=== PATIENT | male | born 1980 | race Caucasian/White ===

== ENCOUNTER 2016-10-18 13:27 | Emergency (ER) | payer SELFPAY ==
[~2016-10-18] VITALS: Ht 175.3 cm; Wt 79.4 kg
[~2016-10-18 13:27] MED LIST: AGM875T PO; ALPR.5T PO; DULO60CA6 PO; HYDR-3714 PO; HYDR-757 PO; NAPR-243 PO; TRAM50TA2 PO; TRZ100T PO
--- OUTSIDE RECORDS SUMMARY | 2016-10-18 13:33 | XMS REPORT | Continuity of Care Document ---
Author Author [facility] Organization [facility] Address Unknown Phone Unavailable Care Team Providers Care Featheredger And Reducer Machine Name Role Phone NORA STOCK DO PCP Insurance Providers Payer Name Policy Number Subscriber Name Relationship [facility] [id number] Ridge Avery Jr 17 Self / Same As Patient Advance Directives Directive Response Recorded Date/Time Advance Directives No 04/29/14 12:15pm Organ Donor No 04/29/14 12:15pm Resuscitation Status Full Code 04/29/14 12:15pm Problems Medical Problems Problem Onset Date Status Dental caries Unknown Active Medications Medication Dose Route Sig Days/Qty Instructions Order Date Discontinued Date Status Alprazolam 1 PO FOUR TIMES DAILY 03/15/11 Active Amoxicillin/Clavulanate K 1 Tab PO TWICE A DAY 20 Qty 04/29/14 Active Naproxen 1 Each PO THREE TIMES A DAY PRN PAIN 20 Qty FOR PAIN 04/29/14 Active Hydrocodone Bit/Acetaminophen 1 Ea PO EVERY 6 HOURS PRN MILD PAIN 10 Qty 04/29/14 Active Duloxetine HCl 1 Cap PO DAILY 04/29/14 Active Trazodone HCl 100 Mg PO BEDTIME 04/29/14 Active Social History Social History Problem Response Recorded Date/Time Alcohol Use Denies Use 04/29/2014 12:15pm Recreational Drug Use No 04/29/2014 12:15pm Smoking Status Current Everyday Smoker 04/29/2014 12:15pm Query Response Start Date Stop Date Smoking Status Current Everyday Smoker Hospital Discharge Instructions No hospital discharge instructions. Plan of Care No plan of care. Functional Status No functional status results. Allergies, Adverse Reactions, Alerts Allergen Type Severity Reaction Status Last Updated No Known Drug Allergies Active 03/15/11 Immunizations No immunization records. Vital Signs Acute Vital Signs Vital Response Date/Time Temperature (Fahrenheit) 98.4 degrees F (97.6 - 99.5) Temperature (Calculated Celsius) 36.80579 degrees C (36.4 - 37.5) Temperature Source Temporal Pain Pain Intensity 8 Height (Feet) 5 feet Height (Inches) 11 inches Height (Calculated Centimeters) 180.861085 cm Weight (Pounds) 162 pounds Weight (Calculated Kilograms) 73.013466 kilograms Calculated BMI 22.59 Results No known relevant diagnostic tests, laboratory data and/or discharge summary. Procedures No known history of procedures. Encounters Encounter Location Date/Time Departed Emergency Room [facility] 04/29/14 12:07pm Recent Diagnosis
[2016-10-18] MEDS ORDERED: NAPR500T PO (14:29)
[2016-10-18] MEDS ORDERED: AMOX500C2 PO (14:29)
[2016-10-18] MEDS ORDERED: LIDO5JEL10 MM (14:29)
--- NOTE | 2016-10-18 14:29 | ED EENT ---
History of Present Illness General Chief Complaint: Dental Problems/Pain Stated Complaint: TOOTH PAIN Source: patient Exam Limitations: no limitations History of Present Illness Time seen by provider: 14:26 Initial Comments To ER with bilateral lower dental pain for the past 6 months secondary to fractured teeth and dental caries. Scheduled to see the dental clinic on [address] next month he states. Timing/Duration: abrupt Severity: moderate Location: dental Associated Symptoms: denies symptoms Allergies and Home Medications Allergies Coded Allergies: No Known Drug Allergies (Unverified , 03/15/11) Home Medications Alprazolam 0.5 Mg Tablet 1 PO QID (Reported) Amoxicillin/Clavulanate K 875 Mg Tab #20 1 TAB PO BID Prescribed by: LUISA SEXTON on 04/29/14 1211 Duloxetine Hcl 60 Mg Capsule.dr 1 CAP PO DAILY (Reported) Hydrocodone Bit/Acetaminophen 1 Each Tablet #10 1 EA PO Q6H PRN PRN MILD PAIN Prescribed by: LUISA SEXTON on 04/29/14 1212 Hydrocodone Bit/Acetaminophen 1 Tab Tablet #14 1 TAB PO Q4H PRN PRN PAIN Prescribed by: RADHA LIND on 05/06/14 1145 Naproxen 500 Mg Tablet #20 1 EACH PO TID PRN PRN PAIN FOR PAIN Prescribed by: LUISA SEXTON on 04/29/14 1212 Naproxen 500 Mg Tablet #20 1 EACH PO TID PRN PRN PRN PAIN Prescribed by: RADHA LIND on 05/06/14 1145 Tramadol HCl 50 Mg Tablet #14 50 MG PO Q4H PRN PRN PAIN Prescribed by: RADHA LIND on 01/31/16 1844 Trazodone Hcl 100 Mg Tab 100 MG PO HS (Reported) Review of Systems Constitutional: see HPINo chills Eyes: No Symptoms Reported Ears: No Symptoms Reported Nose: no symptoms reported Mouth: see HPI pain Throat: no symptoms reported Cardiovascular: no symptoms reported Musculoskeletal: no symptoms reported Past Qrkmgrw-Koxysg-Firxjl Hx Patient Social History Recent Foreign Travel: No Contact w/Someone Who Travel: No Surgeries HX Surgeries: Yes (DENTAL) Respiratory Hx Respiratory Disorders: No Cardiovascular Hx Cardiac Disorders: No Neurological Hx Neurological Disorders: No Genitourinary Hx Genitourinary Disorders: No Gastrointestinal Hx Gastrointestinal Disorders: No Musculoskeletal Hx Musculoskeletal Disorders: No Endocrine Hx Endocrine Disorders: No HEENT HX ENT Disorders: No Cancer Hx Cancer: No Psychosocial Hx Psychiatric Problems: No Integumentary HX Skin/Integumentary Disorder: No Blood Transfusions Hx Blood Disorders: No Family Medical History Significant Family History: No Pertinent Family Hx Physical Exam General Appearance: WD/WN no apparent distress Eyes: bilateral eye EOMI, bilateral eye PERRL, bilateral eye normal inspection Ears: bilateral ear TM normal, bilateral ear auricle normal, bilateral ear canal normal Nose: normal inspection Mouth/Throat: other (multiple fractured and carious teeth. No buccal swelling to suggest abscess) Neck: non-tender full range of motionNo lymphadenopathy (R), No lymphadenopathy (L) Respiratory: no respiratory distress no accessory muscle use Gastrointestinal: normal bowel sounds non tender Neurologic/Psychiatric: alert normal mood/affect oriented x 3 Skin: normal color warm/dry Departure Impression Impression: Primary Impression: Pain due to dental caries Disposition: HOME, SELF-CARE Condition: Stable Departure-Patient Inst. Decision time for Depature: 14:27 Referrals: NORA STOCK DO (PCP/Family) Primary Care Physician Patient Instructions: Dental Pain (DC) Add. Discharge Instructions: 1. Medication as directed 2. Follow-up with your dentist as soon as possible 3. Antibiotics as directed All discharge instructions reviewed with patient and/or family. Voiced understanding. Scripts Lidocaine HCl 5 Ml Jel.pf.app1 Ml MM UD #1 TUBE Dip a cotton ball in the lidocaine then applied to the base of the painful tooth Prov:LUISA SEXTON APRN 10/18/16 Naproxen (Naprosyn)500 Mg [id number] Mg PO BID PRN PAIN #20 TAB Prov:LUISA SEXTON APRN 10/18/16 Amoxicillin 500 Mg [id number] Mg PO TID #21 CAP Prov:LUISA SEXTON APRN 10/18/16 LUISA SEXTON APRN Oct 18, 2016 14:29
[2016-10-18 14:35] VITALS: BP 130/92
== END 2016-10-18 14:35 | disposition home or self-care (01) ==
LOC: EDUNIT# 13:27 → ER 13:29
DX: K02.9 Dental caries, unspecified (principal)
CPT/HCPCS: 99282

== ENCOUNTER 2018-05-09 11:21 | Inpatient (IN) | payer SELFPAY ==
[~2018-05-09] VITALS: Ht 180.3 cm; Wt 77.1 kg
[~2018-05-09 11:21] MED LIST changes: +AMOX500C2 PO; +CEFD300C3 PO; +HYDR-4226 PO; +LIDO5JEL10 MM; +NAPR-1071 PO; +PANT40SU PO
[2018-05-09 12:00] VITALS: BP 100/62
[2018-05-09] MEDS ORDERED: HYDROcodone/APAP 5 MG/325 MG (LORTAB) TAB PO PRN (12:45)
[2018-05-09] MEDS: cefTRIAXone 1 GM/NS 50 ML IVPB IV SCH ×2 (12:54)
[2018-05-09] MEDS: NS IV 1000 ML 1,000 ML IV SCH ×2 (12:54→23:00)
[2018-05-09] MEDS ORDERED: PANT40TA2 PO (13:25)
[2018-05-09] MEDS ORDERED: CYAN-23 PO (13:28)
[2018-05-09] MEDS ORDERED: ASCO-262 PO (13:28)
[2018-05-09] MEDS ORDERED: CHOL20003 PO (13:28)
[2018-05-09 13:30] LABS: BASOPHILS % (AUTO) 0 % (0-10); EOSINOPHILS # (AUTO) 0.2 10^3/uL (0.0-0.3); EOSINOPHILS % (AUTO) 2 % (0-10); HEMATOCRIT 33 % (40-54); HEMOGLOBIN 11.8 G/DL (13.3-17.7); LYMPHOCYTES # (AUTO) 0.8 X 10^3 (1.0-4.0); LYMPHOCYTES % (AUTO) 12 % (12-44); MEAN CORPUSCULAR HEMOGLOBIN 31 PG (25-34); MEAN CORPUSCULAR HGB CONC 35 G/DL (32-36); MEAN CORPUSCULAR VOLUME 88 FL (80-99); MONOCYTES # (AUTO) 0.9 X 10^3 (0.0-1.0); MONOCYTES % (AUTO) 12 % (0-12); NEUTROPHILS % (AUTO) 73 % (42-75); PLATELET COUNT 175 10^3/uL (130-400); RED CELL DISTRIBUTION WIDTH 13.5 % (10.0-14.5); WHITE BLOOD COUNT 6.9 10^3/uL (4.3-11.0)
[2018-05-09 13:44] LABS: ALANINE AMINOTRANSFERASE 44 U/L (0-55); ALBUMIN 3.8 GM/DL (3.2-4.5); ALKALINE PHOSPHATASE 181 U/L (40-136); BILIRUBIN,TOTAL 0.7 MG/DL (0.1-1.0); BUN/CREATININE RATIO 10; CALCIUM 8.6 MG/DL (8.5-10.1); CARBON DIOXIDE 20 MMOL/L (21-32); CHLORIDE 105 MMOL/L (98-107); CREATININE SERUM 0.72 MG/DL (0.60-1.30); GFR ESTIMATED > 60; GLUCOSE 89 MG/DL (70-105); POTASSIUM 3.3 MMOL/L (3.6-5.0); SODIUM 136 MMOL/L (135-145); TOTAL PROTEIN 6.6 GM/DL (6.4-8.2)
[2018-05-09] MEDS: NICOTINE 14 MG (NICODERM) PATCH TD SCH (14:02)
[2018-05-09] MEDS ORDERED: KCL 10 MEQ TAB (MICRO K) PO NR (14:30)
[2018-05-09] MEDS ORDERED: CATHETER FLUSH 10 ML SYR IV PRN (14:45)
[2018-05-09 14:56] LABS: AMYLASE 13 U/L (25-125); LIPASE < 4 U/L (8-78)
[2018-05-09 16:31] VITALS: BP 119/67
--- NOTE | 2018-05-09 18:27 | Diagnostic Imaging Report ---
INDICATION: Generalized abdominal pain COMPARISON: None. FINDINGS: Two views demonstrate nondistended bowel gas pattern. There is no significant constipation. There is no free air. Osseous structures are normal. IMPRESSION: 1. Negative KUB. Dictated by: Dictated on workstation # [id number]
--- NOTE | 2018-05-09 19:11 | History & Physicial ---
History of Present Illness History of Present Illness Reason for visit/HPI Challenged shivering and shaking. Patient came to the emergency room yesterday has begins to 5 at that time was running over 103 temperature. Upper abdomen pain and hurting on both sides. CAT scan shows splenic abscess probably. Patient complaining of pain in the upper abdomen on the left side. Surgery denies. Family history grandma diabetic denies asthma TB heart disease lung disease cancer. Patient came to the office today and didn't have a good night and put directly into the hospital Date of Admission May 09, 2018 at 11:53 Time Seen by Provider: 19:00 I consulted on this patient on 05/09/18 19:03 Attending Physician Myron Stock DO Admitting Physician Myron Stock DO Consult Allergies and Home Medications Allergies Coded Allergies: No Known Drug Allergies (Unverified , 03/15/11) Home Medications Ascorbate Calcium 500 Mg Tablet, 500 MG PO DAILY, (Reported) Cefdinir 300 Mg Capsule, 300 MG PO BID Prescribed by: LUISA SEXTON on 05/08/18 1452 Cholecalciferol (Vitamin D3) 2,000 Unit Capsule, 2,000 UNIT PO DAILY, (Reported) Cyanocobalamin (Vitamin B-12) 1,000 Mcg Capsule, 1,000 MCG PO DAILY, (Reported) Hydrocodone/Acetaminophen 1 Each Tablet, 1 EACH PO Q4H PRN for PAIN-MODERATE TO SEVERE Prescribed by: LUISA SEXTON on 05/08/18 1452 Pantoprazole Sodium 40 Mg Tablet.dr, 40 MG PO DAILY, (Reported) Patient Home Medication List Home Medication List Reviewed: Yes Past Bjpugfi-Auphul-Eksrgt Hx Patient Social History Marrital Status: Employed/Student: unemployed Alcohol Use: Denies Use Recreational Drug Use: No Type Used: Cigarettes 2nd Hand Smoke Exposure: Yes Physical Abuse Screen: No Sexual Abuse: No Recent Foreign Travel: No Contact w/other who traveled: No Recent Hopitalizations: No Surgeries Yes (DENTAL) Respiratory No Cardiovascular No Neurological No Gastrointestinal No Musculoskeletal No Endocrine History of Endocrine Disorders: No HEENT History of HEENT Disorders: No Cancer No Psychosocial History of Psychiatric Problem: Yes Behavioral Health Disorders: Anxiety Integumentary History of Skin or Integumenta: No Blood Transfusions History of Blood Disorders: No Family Medical History Significant Family History: No Pertinent Family Hx Review of Systems Constitutional: chills, fever, weakness EENTM: no symptoms reported Respiratory: no symptoms reported Cardiovascular: no symptoms reported Gastrointestinal: RUQ, LUQ, abdominal pain (RUQ) Genitourinary: no symptoms reported Physical Exam Vital Signs Vital Signs - First Documented 05/09/18 12:00 Temp 97.5 Pulse 72 Resp 20 B/P (MAP) 100/62 (75) Pulse Ox 98 O2 Delivery Room Air Capillary Refill : Height, Weight, BMI Height: 5'11.00" Weight: 170lbs. 0.0oz. 77.976733kv; 23.7 BMI Method:Stated General Appearance: No Apparent Distress Eyes: Bilateral Eye Normal Inspection HEENT: Normal ENT Inspection Neck: Normal Inspection Respiratory: Lungs Clear, No Accessory Muscle Use, No Respiratory Distress Cardiovascular: Regular Rate, Rhythm, No Murmur Gastrointestinal: Non Tender, Soft Assessment/Plan Assessment and Plan Abscess of spleen. Fever. Abdominal pain. Admission Diagnosis Admission Status: Inpatient Order (span 2 midnights) Reason for Inpatient Admission: Fever. Chills. Abdominal pain upper quadrant. Clinical Quality Measures DVT/VTE Risk/Contraindication: Risk Factor Score Per Nursin RFS Level Per Nursing on Admit: 1=Low/No VTE PPX MYRON STOCK DO May 09, 2018 19:10
[2018-05-09] MEDS ORDERED: ACETAMINOPHEN 500 MG TAB (TYLENOL) PO PRN (19:30)
[2018-05-09 19:40] VITALS: BP 133/73
[2018-05-09] MEDS: PANTOPRAZOLE 40 MG (PROTONIX) VIAL IV SCH (20:09)
[2018-05-09] MEDS: HYDROcodone/APAP 5 MG/325 MG (LORTAB) TAB PO PRN (20:10)
[2018-05-10] VITALS (7 sets, daily range): BP systolic 114–126; BP diastolic 62–75
[2018-05-10] MEDS: HYDROcodone/APAP 5 MG/325 MG (LORTAB) TAB PO PRN ×5 (00:18→20:25)
[2018-05-10 06:29] LABS: BASOPHILS % (AUTO) 1 % (0-10); EOSINOPHILS # (AUTO) 0.1 10^3/uL (0.0-0.3); EOSINOPHILS % (AUTO) 2 % (0-10); HEMATOCRIT 33 % (40-54); HEMOGLOBIN 11.5 G/DL (13.3-17.7); LYMPHOCYTES # (AUTO) 1.7 X 10^3 (1.0-4.0); LYMPHOCYTES % (AUTO) 31 % (12-44); MEAN CORPUSCULAR HEMOGLOBIN 31 PG (25-34); MEAN CORPUSCULAR HGB CONC 35 G/DL (32-36); MEAN CORPUSCULAR VOLUME 89 FL (80-99); MEAN PLATELET VOLUME 10.3 FL (7.4-10.4); MONOCYTES # (AUTO) 0.9 X 10^3 (0.0-1.0); MONOCYTES % (AUTO) 17 % (0-12); NEUTROPHILS # (AUTO) 2.7 X 10^3 (1.8-7.8); NEUTROPHILS % (AUTO) 50 % (42-75); PLATELET COUNT 206 10^3/uL (130-400); RED BLOOD COUNT 3.75 10^6/uL (4.35-5.85); RED CELL DISTRIBUTION WIDTH 13.8 % (10.0-14.5); WHITE BLOOD COUNT 5.4 10^3/uL (4.3-11.0)
--- NOTE | 2018-05-10 06:36 | Progress Note (SOAP) ---
Subjective Time Seen by Provider: 06:35 Subjective/Events-last exam Patient feels better this morning by 50 percent. Patient not running an elevated temperature during the night. Patient still has abdominal discomfort in the upper abdomen. Patient improving Objective Exam Vital Signs Date Time Temp Pulse Resp B/P (MAP) Pulse Ox O2 Delivery O2 Flow Rate FiO2 05/10/18 04:53 98.8 89 17 121/68 (85) 95 Room Air 05/10/18 00:02 97.8 91 18 115/62 (79) 96 Room Air 05/09/18 21:42 101.9 05/09/18 20:10 103.1 05/09/18 19:40 103.1 97 16 133/73 (93) 98 Room Air 05/09/18 16:31 99.6 89 20 119/67 (84) 97 05/09/18 12:15 Room Air 05/09/18 12:00 97.5 72 20 100/62 (75) 98 Room Air I & O 05/10/18 07:00 Intake Total 1350 ml Balance 1350 ml Capillary Refill : General Appearance: No Apparent Distress, WD/WN HEENT: Normal ENT Inspection Neck: Full Range of Motion Respiratory: Lungs Clear, No Accessory Muscle Use, No Respiratory Distress Cardiovascular: Regular Rate, Rhythm, No Murmur Gastrointestinal: non tender, soft Results Lab Laboratory Tests 05/09/18 13:15: White Blood Count 6.9, Red Blood Count 3.80L, Hemoglobin 11.8L, Hematocrit 33L, Mean Corpuscular Volume 88, Mean Corpuscular Hemoglobin 31, Mean Corpuscular Hemoglobin Concent 35, Red Cell Distribution Width 13.5, Platelet Count 175, Mean Platelet Volume 10.0, Neutrophils (%) (Auto) 73, Lymphocytes (%) (Auto) 12 , Monocytes (%) (Auto) 12, Eosinophils (%) (Auto) 2, Basophils (%) (Auto) 0, Neutrophils # (Auto) 5.0, Lymphocytes # (Auto) 0.8L, Monocytes # (Auto) 0.9, Eosinophils # (Auto) 0.2, Basophils # (Auto) 0.0, Sodium Level 136, Potassium Level 3.3L, Chloride Level 105, Carbon Dioxide Level 20L, Anion Gap 11, Blood Urea Nitrogen 7, Creatinine 0.72, Estimat Glomerular Filtration Rate > 60, BUN/ Creatinine Ratio 10, Glucose Level 89, Calcium Level 8.6, Corrected Calcium 8.8 , Total Bilirubin 0.7, Aspartate Amino Transf (AST/SGOT) 22, Alanine Aminotransferase (ALT/SGPT) 44, Alkaline Phosphatase 181H, Total Protein 6.6, Albumin 3.8, Amylase Level 13L, Lipase < 4L 05/10/18 06:02: White Blood Count 5.4, Red Blood Count 3.75L, Hemoglobin 11.5L, Hematocrit 33L, Mean Corpuscular Volume 89, Mean Corpuscular Hemoglobin 31, Mean Corpuscular Hemoglobin Concent 35, Red Cell Distribution Width 13.8, Platelet Count 206, Mean Platelet Volume 10.3, Neutrophils (%) (Auto) 50, Lymphocytes (%) (Auto) 31 , Monocytes (%) (Auto) 17H, Eosinophils (%) (Auto) 2, Basophils (%) (Auto) 1, Neutrophils # (Auto) 2.7, Lymphocytes # (Auto) 1.7, Monocytes # (Auto) 0.9, Eosinophils # (Auto) 0.1, Basophils # (Auto) 0.0 Assessment/Plan Assessment/Plan Assess & Plan/Chief Complaint Abdominal pain. Febrile. Abscess spleen. Clinical Quality Measures Admission Status Admission Dx Abscess of spleen. Fever. Abdominal pain. DVT/VTE Risk/Contraindication: Risk Factor Score Per Nursin RFS Level Per Nursing on Admit: 1=Low/No VTE PPX NORA STOCK DO May 10, 2018 06:36
[2018-05-10 06:49] LABS: ALANINE AMINOTRANSFERASE 37 U/L (0-55); ALBUMIN 3.4 GM/DL (3.2-4.5); ALKALINE PHOSPHATASE 195 U/L (40-136); BILIRUBIN,TOTAL 0.5 MG/DL (0.1-1.0); BUN/CREATININE RATIO 10; CALCIUM 8.4 MG/DL (8.5-10.1); CARBON DIOXIDE 19 MMOL/L (21-32); CHLORIDE 110 MMOL/L (98-107); CREATININE SERUM 0.68 MG/DL (0.60-1.30); GFR ESTIMATED > 60; GLUCOSE 94 MG/DL (70-105); POTASSIUM 3.9 MMOL/L (3.6-5.0); SODIUM 139 MMOL/L (135-145)
[2018-05-10] MEDS ORDERED: IOHEXOL 350 MG/ML 100 ML (OMNIPAQUE 350) VIAL IV ONE (08:30)
[2018-05-10] MEDS ORDERED: NS 250 ML (IVPB) BAG IV ONE (08:30)
[2018-05-10] MEDS ORDERED: RECEIVED CONTRAST (Hold Metformin) IV SCH (08:45)
[2018-05-10] MEDS ORDERED: PANTOPRAZOLE 40 MG (PROTONIX) TAB PO SCH (09:00)
[2018-05-10] MEDS: NS IV 1000 ML 1,000 ML IV SCH ×2 (09:11→19:15)
[2018-05-10] MEDS: PATCH REMOVAL TP SCH (09:11)
[2018-05-10] MEDS: NICOTINE 14 MG (NICODERM) PATCH TD SCH (09:11)
[2018-05-10] MEDS: PANTOPRAZOLE 40 MG (PROTONIX) VIAL IV SCH (09:11)
--- NOTE | 2018-05-10 10:30 | Diagnostic Imaging Report ---
PROCEDURE: CT abdomen and pelvis with contrast. TECHNIQUE: Multiple contiguous axial images were obtained through the abdomen and pelvis after administration of intravenous contrast. INDICATION: Abdominal pain. FINDINGS: The recent CT abdomen/pelvis exam of 05/08/2018 noted an area of inhomogeneity and irregularity in the superior portion of the spleen. The possibility that this is related to an early abscess was raised. On this exam, there is now a small 8.9 x 13.1 mm rounded area of diminished density. This could represent a small infected fluid collection. The spleen is otherwise unremarkable. There is no perisplenic fluid collection identified and the spleen appears to be well vascularized. The overall appearance of the abdomen and pelvis has not changed significantly otherwise. No new abnormality has developed. The lung bases are generally clear. The bone window show no evidence for a fracture or for a destructive lesion. IMPRESSION: 1. In the interval since the previous study, a small 8.9 x 13.1 mm rounded area of low density has developed in the dome of the spleen. This could represent a small infected fluid collection. It may prove worthwhile to obtain an ultrasound examination of this area so that the patient can be followed by ultrasound as opposed to CT, thereby limiting the amount of radiation exposure. 2. The overall appearance of the abdomen and pelvis has not changed significantly otherwise. No new abnormality has developed. 3. These results were discussed with Dr. Teixeira. Dictated by: Dictated on workstation # [id number]
--- NOTE | 2018-05-10 12:21 | Consultation ---
History of Present Illness History of Present Illness Patient Consulted On(zayra/time) 05/10/18 12:18 Date Seen by Provider: May 10, 2018 Time Seen by Provider: 11:05 Reason for Visit: Increasing abdominal pain and fever History of Present Illness High-grade fever 5 days ago with upper abdominal pain, with evaluation revealing a [address] scan is negative for any other intra- abdominal abnormalities. Specifically, there is no evidence of diverticulitis. He reports using injectable illicit drugs in the past. Allergies and Home Medications Allergies Coded Allergies: No Known Drug Allergies (Unverified , 03/15/11) Home Medications Ascorbate Calcium 500 Mg Tablet, 500 MG PO DAILY, (Reported) Cefdinir 300 Mg Capsule, 300 MG PO BID Prescribed by: LUISA SEXTON on 05/08/18 1452 Cholecalciferol (Vitamin D3) 2,000 Unit Capsule, 2,000 UNIT PO DAILY, (Reported) Cyanocobalamin (Vitamin B-12) 1,000 Mcg Capsule, 1,000 MCG PO DAILY, (Reported) Hydrocodone/Acetaminophen 1 Each Tablet, 1 EACH PO Q4H PRN for PAIN-MODERATE TO SEVERE Prescribed by: LUISA SEXTON on 05/08/18 1452 Pantoprazole Sodium 40 Mg Tablet.dr, 40 MG PO DAILY, (Reported) Patient Home Medication List Home Medication List Reviewed: Yes Past Kgrxrwf-Vrxcmi-Gprpqv Hx Patient Social History Alcohol Use: Denies Use Recreational Drug Use: No Type Used: Cigarettes 2nd Hand Smoke Exposure: Yes Recent Foreign Travel: No Contact w/Someone Who Travel: No Recent Hopitalizations: No Past Medical History Surgeries: Yes (DENTAL) Respiratory: No Cardiac: No Neurological: No Gastrointestinal: No Musculoskeletal: No Endocrine: No HEENT: No Cancer: No Psychosocial: Yes Anxiety Integumentary: No Blood Disorders: No Family Medical History No Pertinent Family Hx Review of Systems-General Constitutional: chills, fever, malaise EENTM: no symptoms reported Respiratory: no symptoms reported Cardiovascular: no symptoms reported Gastrointestinal: see HPI Genitourinary: no symptoms reported Musculoskeletal: no symptoms reported Skin: no symptoms reported Psychiatric/Neurological: No Symptoms Reported Physical Exam-General Problems Physical Exam Vital Signs Vital Signs - First Documented 05/09/18 12:00 Temp 97.5 Pulse 72 Resp 20 B/P (MAP) 100/62 (75) Pulse Ox 98 O2 Delivery Room Air Capillary Refill : General Appearance: no apparent distress Respiratory: lungs clear Cardiovascular: regular rate, rhythm Gastrointestinal: non tender, soft Extremities: non-tender, normal inspection Neurologic/Psychiatric: alert, oriented x 3 Skin: warm/dry Assessment/Plan Assessment/Plan Admission Diagnosis/Plan Gentleman with a small abscess along the superior aspect of the spleen. Possibly due to seeding by bacteria from another source. Cardiac valve as a potential source of origin and therefore an echocardiogram would be valuable. I 've discussed this with Dr. Collado, one of our cardiologists, who concurs with the idea of echocardiogram Admission Status: Inpatient Order (span 2 midnights) Reason for Inpatient Admission: Expected intravenous antibiotics lasting longer than 48 hours Clinical Quality Measures DVT/VTE Risk/Contraindication: Risk Factor Score Per Nursin RFS Level Per Nursing on Admit: 1=Low/No VTE PPX ELOISE VÁZQUEZ MD May 10, 2018 12:21 pm
[2018-05-10] MEDS: cefTRIAXone 1 GM/NS 50 ML IVPB IV SCH ×2 (12:37)
[2018-05-11 00:18] VITALS: BP 114/72
[2018-05-11] MEDS: HYDROcodone/APAP 5 MG/325 MG (LORTAB) TAB PO PRN ×5 (02:59→21:16)
[2018-05-11 04:10] VITALS: BP 123/79
[2018-05-11] MEDS: NS IV 1000 ML 1,000 ML IV SCH (05:30)
[2018-05-11 06:04] LABS: BASOPHILS % (AUTO) 1 % (0-10); EOSINOPHILS # (AUTO) 0.2 10^3/uL (0.0-0.3); EOSINOPHILS % (AUTO) 3 % (0-10); HEMATOCRIT 30 % (40-54); HEMOGLOBIN 10.5 G/DL (13.3-17.7); LYMPHOCYTES # (AUTO) 1.1 X 10^3 (1.0-4.0); LYMPHOCYTES % (AUTO) 21 % (12-44); MEAN CORPUSCULAR HEMOGLOBIN 31 PG (25-34); MEAN CORPUSCULAR HGB CONC 36 G/DL (32-36); MEAN CORPUSCULAR VOLUME 88 FL (80-99); MONOCYTES # (AUTO) 0.5 X 10^3 (0.0-1.0); MONOCYTES % (AUTO) 9 % (0-12); NEUTROPHILS # (AUTO) 3.5 X 10^3 (1.8-7.8); NEUTROPHILS % (AUTO) 66 % (42-75); PLATELET COUNT 215 10^3/uL (130-400); RED BLOOD COUNT 3.36 10^6/uL (4.35-5.85); RED CELL DISTRIBUTION WIDTH 13.7 % (10.0-14.5); WHITE BLOOD COUNT 5.2 10^3/uL (4.3-11.0)
[2018-05-11 06:22] LABS: ALANINE AMINOTRANSFERASE 36 U/L (0-55); ALBUMIN 3.3 GM/DL (3.2-4.5); ALKALINE PHOSPHATASE 277 U/L (40-136); BILIRUBIN,TOTAL 0.4 MG/DL (0.1-1.0); BUN/CREATININE RATIO 13; CALCIUM 8.5 MG/DL (8.5-10.1); CARBON DIOXIDE 19 MMOL/L (21-32); CHLORIDE 110 MMOL/L (98-107); CREATININE SERUM 0.67 MG/DL (0.60-1.30); GFR ESTIMATED > 60; GLUCOSE 122 MG/DL (70-105); POTASSIUM 3.7 MMOL/L (3.6-5.0); SODIUM 139 MMOL/L (135-145); TOTAL PROTEIN 5.8 GM/DL (6.4-8.2)
--- NOTE | 2018-05-11 07:51 | Progress Note (SOAP) ---
Subjective Time Seen by Provider: 07:50 Subjective/Events-last exam Patient feels 70 percent better. Patient still has some abdominal pain. Patient not running any temperature. Patient needing and taking fluids. Patient has a splenic abscess small . Had echocardiogram yesterday. Consult with cardiology. We'll probably discharge tomorrow Objective Exam Vital Signs Date Time Temp Pulse Resp B/P (MAP) Pulse Ox O2 Delivery O2 Flow Rate FiO2 05/11/18 04:10 98.4 68 18 123/79 (94) 98 Room Air 05/11/18 00:18 98.7 78 18 114/72 (86) 98 Room Air 05/10/18 20:46 97.7 69 18 126/68 (87) 99 Room Air 05/10/18 15:37 98.2 71 18 114/75 (88) 99 Room Air 05/10/18 12:00 98.4 64 20 117/75 (89) 99 Room Air 05/10/18 08:00 98.3 70 18 116/65 (82) 97 Room Air I & O 05/11/18 07:00 Intake Total 4234 ml Output Total 1750 ml Balance 2484 ml Capillary Refill : General Appearance: No Apparent Distress, WD/WN HEENT: Normal ENT Inspection Neck: Full Range of Motion, Normal Inspection Respiratory: Lungs Clear, No Accessory Muscle Use, No Respiratory Distress Cardiovascular: Regular Rate, Rhythm, No Murmur Gastrointestinal: non tender, soft Results Lab Laboratory Tests 05/11/18 05:30 Laboratory Tests 05/11/18 05:30: White Blood Count 5.2, Red Blood Count 3.36L, Hemoglobin 10.5L, Hematocrit 30L, Mean Corpuscular Volume 88, Mean Corpuscular Hemoglobin 31, Mean Corpuscular Hemoglobin Concent 36, Red Cell Distribution Width 13.7, Platelet Count 215, Mean Platelet Volume 10.0, Neutrophils (%) (Auto) 66, Lymphocytes (%) (Auto) 21 , Monocytes (%) (Auto) 9, Eosinophils (%) (Auto) 3, Basophils (%) (Auto) 1, Neutrophils # (Auto) 3.5, Lymphocytes # (Auto) 1.1, Monocytes # (Auto) 0.5, Eosinophils # (Auto) 0.2, Basophils # (Auto) 0.0, Sodium Level 139, Potassium Level 3.7, Chloride Level 110H, Carbon Dioxide Level 19L, Anion Gap 10, Blood Urea Nitrogen 9, Creatinine 0.67, Estimat Glomerular Filtration Rate > 60, BUN/ Creatinine Ratio 13, Glucose Level 122H, Calcium Level 8.5, Corrected Calcium 9.1, Total Bilirubin 0.4, Aspartate Amino Transf (AST/SGOT) 23, Alanine Aminotransferase (ALT/SGPT) 36, Alkaline Phosphatase 277H, Total Protein 5.8L, Albumin 3.3 Assessment/Plan Assessment/Plan Assess & Plan/Chief Complaint Abdominal pain. Febrile. Abscess spleen.. . 05/11/18. Abdominal pain better. Not febrile. Splenic abscess small. Patient taking fluids. Plan to discharge tomorrow Clinical Quality Measures Admission Status Admission Dx Abscess of spleen. Fever. Abdominal pain. DVT/VTE Risk/Contraindication: Risk Factor Score Per Nursin RFS Level Per Nursing on Admit: 1=Low/No VTE PPX NORA STOCK DO May 11, 2018 07:51
[2018-05-11 08:00] VITALS: BP 120/77
[2018-05-11] MEDS: NICOTINE 14 MG (NICODERM) PATCH TD SCH (09:14)
[2018-05-11] MEDS: PATCH REMOVAL TP SCH (09:14)
[2018-05-11] MEDS: PANTOPRAZOLE 40 MG (PROTONIX) TAB PO SCH (09:17)
[2018-05-11] MEDS: PANTOPRAZOLE 40 MG (PROTONIX) VIAL IV SCH (09:17)
--- NOTE | 2018-05-11 11:52 | Consultation-Cardiology ---
HPI-Cardiology Cardiology Consultation: Date of Consultation 05/11/18 Time Seen by Provider: 11:35 Date of Admission 05-09-18 Attending Physician Nora Stock DO Admitting Physician Nora Stock DO Consulting Physician Tonia Paniagua MD HPI: Chief Complaint: Splenic abscess Mr. Avery is a 38 year old male admitted to [facility] from Dr. Stock's office with c/o diffuse abdominal pain and fever. He reports last he woke up from sleep with sharp RUQ abdominal pain which radiated across his abdomen. He reports it was worse with movement and deep breathing. He states he was running a fever at home. No c/o n/v/d. No c/o CP, dyspnea, palpitations, LE edema, syncope or near syncope. He reports a h/o IV drug use in the past ( methamphetamines), but reports no use in approx a year. He states he is currently feeling better and the abdominal discomfort has resolved. Review of Systems-Cardiology Review of Systems Constitutional: chills, fever Eyes: No vision change Ears/Nose/Throat: No epistaxis, No recent hearing loss Respiratory: As described under HPI Cardiovascular: As described under HPI Gastrointestinal: As described under HPI Genitourinary: No dysuria, No hematuria Musculoskeletal: no symptoms reported Skin: No rash, No ulcerations Psychiatric/Neurological: No seizure, No focal weakness, No syncope Hematologic: No bleeding abnormalities SEF-Mytoji-Xawkco Hx Patient Social History Marrital Status: Employed/Student: unemployed Alcohol Use: Denies Use Recreational Drug Use: No Type Used: Cigarettes 2nd Hand Smoke Exposure: Yes Recent Foreign Travel: No Physical Abuse Screen: No Sexual Abuse: No Past Medical History PMH As described under Assessment. Family Medical History Family Medical History: Denies any family h/o CAD Allergies and Home Medications Allergies Coded Allergies: No Known Drug Allergies (Unverified , 03/15/11) Home Medications Ascorbate Calcium 500 Mg Tablet, 500 MG PO DAILY, (Reported) Cefdinir 300 Mg Capsule, 300 MG PO BID Prescribed by: LUISA SEXTON on 05/08/18 8297 Cholecalciferol (Vitamin D3) 2,000 Unit Capsule, 2,000 UNIT PO DAILY, (Reported) Cyanocobalamin (Vitamin B-12) 1,000 Mcg Capsule, 1,000 MCG PO DAILY, (Reported) Hydrocodone/Acetaminophen 1 Each Tablet, 1 EACH PO Q4H PRN for PAIN-MODERATE TO SEVERE Prescribed by: LUISA SEXTON on 05/08/18 1452 Pantoprazole Sodium 40 Mg Tablet., 40 MG PO DAILY, (Reported) Patient Home Medication List Home Medication List Reviewed: Yes Physical Exam-Cardiology Physical Exam Vital Signs/I&O 05/12/18 00:00 Temp 98.6 Pulse 63 Resp 18 B/P (MAP) 118/67 (84) Pulse Ox 97 O2 Delivery Room Air 05/12/18 00:00 Intake Total 1270 ml Balance 1270 ml Capillary Refill : Constitutional: AAO x 3 HEENT: PERRL, hearing is well preserved, oral hygience is good Neck: No carotid bruit; carotid pulses are 2 + bilaterally Respiratory: No accessory muscle use, No respiratory distress; chest expansion is symmetric, chest is bilaterally symmetric, lungs clear to auscultation Cardiovascular: regular rate-rhythm; No JVD; S1 and S2 Gastrointestinal: No tender; soft, round Rectal: deferred Extremities: no lower extremity edema bilateral Neurologic/Psychiatric: grossly intact, power is 5/5 both on sides Skin: No rash, No ulcerations Data Review Labs Laboratory Tests 05/12/18 05:16: White Blood Count 5.2, Red Blood Count 3.57L, Hemoglobin 11.0L, Hematocrit 32L, Mean Corpuscular Volume 88, Mean Corpuscular Hemoglobin 31, Mean Corpuscular Hemoglobin Concent 35, Red Cell Distribution Width 14.1, Platelet Count 291, Mean Platelet Volume 10.0, Neutrophils (%) (Auto) 48, Lymphocytes (%) (Auto) 33 , Monocytes (%) (Auto) 12, Eosinophils (%) (Auto) 6, Basophils (%) (Auto) 1, Neutrophils # (Auto) 2.5, Lymphocytes # (Auto) 1.7, Monocytes # (Auto) 0.6, Eosinophils # (Auto) 0.3, Basophils # (Auto) 0.1, Sodium Level 139, Potassium Level 3.6, Chloride Level 110H, Carbon Dioxide Level 21, Anion Gap 8, Blood Urea Nitrogen 8, Creatinine 0.65, Estimat Glomerular Filtration Rate > 60, BUN/ Creatinine Ratio 12, Glucose Level 104, Calcium Level 8.7, Corrected Calcium 9.2 , Total Bilirubin 0.6, Aspartate Amino Transf (AST/SGOT) 64H, Alanine Aminotransferase (ALT/SGPT) 69H, Alkaline Phosphatase 370H, Total Protein 6.0L, Albumin 3.4, Smear Scan YES Radiology NAME: [facility] REC#: [id number] PT STATUS: ADM IN : 1980 PHYSICIAN: NORA STOCK DO ADMIT DATE: 05/09/18/ Draft Date of Exam:05/10/18 CT ABDOMEN/PELVIS W PROCEDURE: CT abdomen and pelvis with contrast. TECHNIQUE: Multiple contiguous axial images were obtained through the abdomen and pelvis after administration of intravenous contrast. INDICATION: Abdominal pain. FINDINGS: The recent CT abdomen/pelvis exam of 05/08/2018 noted an area of inhomogeneity and irregularity in the superior portion of the spleen. The possibility that this is related to an early abscess was raised. On this exam, there is now a small 8.9 x 13.1 mm rounded area of diminished density. This could represent a small infected fluid collection. The spleen is otherwise unremarkable. There is no perisplenic fluid collection identified and the spleen appears to be well vascularized. The overall appearance of the abdomen and pelvis has not changed significantly otherwise. No new abnormality has developed. The lung bases are generally clear. The bone window show no evidence for a fracture or for a destructive lesion. IMPRESSION: 1. In the interval since the previous study, a small 8.9 x 13.1 mm rounded area of low density has developed in the dome of the spleen. This could represent a small infected fluid collection. It may prove worthwhile to obtain an ultrasound examination of this area so that the patient can be followed by ultrasound as opposed to CT thereby limiting the amount of radiation. 2. The overall appearance of the abdomen and pelvis has not changed significantly otherwise. No new abnormality has developed. 3. These results will be discussed with Dr. Stock. Dictated on workstation # [id number] Dict: 05/10/18 1005 Trans: 05/10/18 1030 [id number] Interpreted by: GARCIA HESS MD Electronically signed by: A/P-Cardiology Assessment/Admission Diagnosis Abdominal pain - management per medical services Splenic abscess - Small 8.9 x 13.1 mm rounded area of low density has developed in the dome of the spleen. This could represent a small infected fluid collection - management per surgical services H/O IV drug use in the past (methamphetamines) - last usage approx a year ago Mild anemia of undetermined etiology - medical services managing Tobaccoism - cessation advised Clinical Quality Measures DVT/VTE Risk/Contraindication: Risk Factor Score Per Nursin RFS Level Per Nursing on Admit: 1=Low/No VTE PPX JESUS PENA May 11, 2018 11:52
--- NOTE | 2018-05-11 12:23 | Consultation-Cardiology ---
HPI-Cardiology Cardiology Consultation: Date of Consultation 05/11/18 Time Seen by Provider: 11:20 Date of Admission Attending Physician Myron Ibarra DO Admitting Physician Myron Ibarra DO Consulting Physician YOBANI BRENNAN MD, MA, FACP, FACC, [facility], CCDS Physician requesting consult: Dr Ibarra HPI: Chief Complaint: Reason for consultation: H/o iv drug use, splenic abscess Mr. Segundo is a 38 year old male admitted to [facility] from Dr. Ibarra's office with c/o diffuse abdominal pain and fever. He reports last he woke up from sleep with sharp RUQ abdominal pain which radiated across his abdomen. He reports it was worse with movement and deep breathing. He states he was running a fever at home. No c/o n/v/d. No c/o CP, dyspnea, palpitations, LE edema, syncope or near syncope. He reports a h/o IV drug use in the past ( methamphetamines), but reports no use in approx a year. He states he is currently feeling better and the abdominal discomfort has resolved. Review of Systems-Cardiology Review of Systems Constitutional: chills, fever Eyes: No vision change Ears/Nose/Throat: No epistaxis, No recent hearing loss Respiratory: As described under HPI Cardiovascular: As described under HPI Gastrointestinal: As described under HPI Genitourinary: No dysuria, No hematuria Musculoskeletal: no symptoms reported Skin: No rash, No ulcerations Psychiatric/Neurological: No seizure, No focal weakness, No syncope Hematologic: No bleeding abnormalities SPK-Djbfiy-Eahsgt Hx Patient Social History Marrital Status: Employed/Student: unemployed Alcohol Use: Denies Use Recreational Drug Use: No Type Used: Cigarettes 2nd Hand Smoke Exposure: Yes Recent Foreign Travel: No Physical Abuse Screen: No Sexual Abuse: No Past Medical History PMH As described under Assessment. Family Medical History Family Medical History: Denies any family h/o CAD Allergies and Home Medications Allergies Coded Allergies: No Known Drug Allergies (Unverified , 03/15/11) Home Medications Ascorbate Calcium 500 Mg Tablet, 500 MG PO DAILY, (Reported) Cefdinir 300 Mg Capsule, 300 MG PO BID Prescribed by: LUISA SEXTON on 05/08/18 1622 Cholecalciferol (Vitamin D3) 2,000 Unit Capsule, 2,000 UNIT PO DAILY, (Reported) Cyanocobalamin (Vitamin B-12) 1,000 Mcg Capsule, 1,000 MCG PO DAILY, (Reported) Hydrocodone/Acetaminophen 1 Each Tablet, 1 EACH PO Q4H PRN for PAIN-MODERATE TO SEVERE Prescribed by: LUISA SEXTON on 05/08/18 1452 Pantoprazole Sodium 40 Mg Tablet., 40 MG PO DAILY, (Reported) Patient Home Medication List Home Medication List Reviewed: Yes Physical Exam-Cardiology Physical Exam Vital Signs/I&O 05/11/18 05/11/18 04:10 08:00 Temp 98.4 97.0 Pulse 68 70 Resp 18 20 B/P (MAP) 123/79 (94) 120/77 (91) Pulse Ox 98 97 O2 Delivery Room Air Room Air 05/11/18 00:00 Intake Total 2634 ml Output Total 1750 ml Balance 884 ml Capillary Refill : Constitutional: AAO x 3 HEENT: PERRL, hearing is well preserved, oral hygience is good Neck: No carotid bruit; carotid pulses are 2 + bilaterally Respiratory: No accessory muscle use, No respiratory distress; chest expansion is symmetric, chest is bilaterally symmetric, lungs clear to auscultation Cardiovascular: regular rate-rhythm; No JVD; S1 and S2 Gastrointestinal: No tender; soft, round Rectal: deferred Extremities: no lower extremity edema bilateral Neurologic/Psychiatric: grossly intact, power is 5/5 both on sides Skin: No rash, No ulcerations Data Review Labs Laboratory Tests 05/11/18 05:30: White Blood Count 5.2, Red Blood Count 3.36L, Hemoglobin 10.5L, Hematocrit 30L, Mean Corpuscular Volume 88, Mean Corpuscular Hemoglobin 31, Mean Corpuscular Hemoglobin Concent 36, Red Cell Distribution Width 13.7, Platelet Count 215, Mean Platelet Volume 10.0, Neutrophils (%) (Auto) 66, Lymphocytes (%) (Auto) 21 , Monocytes (%) (Auto) 9, Eosinophils (%) (Auto) 3, Basophils (%) (Auto) 1, Neutrophils # (Auto) 3.5, Lymphocytes # (Auto) 1.1, Monocytes # (Auto) 0.5, Eosinophils # (Auto) 0.2, Basophils # (Auto) 0.0, Sodium Level 139, Potassium Level 3.7, Chloride Level 110H, Carbon Dioxide Level 19L, Anion Gap 10, Blood Urea Nitrogen 9, Creatinine 0.67, Estimat Glomerular Filtration Rate > 60, BUN/ Creatinine Ratio 13, Glucose Level 122H, Calcium Level 8.5, Corrected Calcium 9.1, Total Bilirubin 0.4, Aspartate Amino Transf (AST/SGOT) 23, Alanine Aminotransferase (ALT/SGPT) 36, Alkaline Phosphatase 277H, Total Protein 5.8L, Albumin 3.3 A/P-Cardiology Assessment/Admission Diagnosis Abdominal pain - management per Med Svce Splenic abscess - Small 8.9 x 13.1 mm rounded area of low density has developed in the dome of the spleen. This could represent a small infected fluid collection - management per surgical services H/O IV drug use in the past (methamphetamines) - last usage approx a year ago Mild anemia of undetermined etiology - medical services managing Tobaccoism - cessation advised Discussion and Recomendations * Echo to eval for endocarditis * Advised to quit smoking and refrain from any street drug use * Follow labs Clinical Quality Measures DVT/VTE Risk/Contraindication: Risk Factor Score Per Nursin RFS Level Per Nursing on Admit: 1=Low/No VTE PPX YOBANI BRENNAN MD FACP FAC CCDS May 11, 2018 12:23
[2018-05-11] MEDS: cefTRIAXone 1 GM/NS 50 ML IVPB IV SCH ×2 (13:32)
--- NOTE | 2018-05-11 13:52 | Progress Note (SOAP) ---
Subjective Date Seen by Provider: May 11, 2018 Time Seen by Provider: 13:25 Subjective/Events-last exam Abdominal pain resolved. Passing flatus. Afebrile. Review of Systems General: No Chills, No Night Sweats, No Fatigue, No Malaise HEENT: No Head Aches, No Eye Pain, No Ear Pain, No Dysphasia, No Sinus Congestion, No Post Nasal Drip, No Sore Throat Pulmonary: No Dyspnea, No Cough, No Pleuritic Chest Pain Cardiovascular: No: Chest Pain, Palpitations, Orthopnea, Paroxysmal Noc. Dyspnea, Edema, Lt Headedness Gastrointestinal: No: Nausea, Vomiting, Abdominal Pain, Diarrhea, Constipation , Melena, Hematochezia Genitourinary: No Dysuria, No Frequency, No Incontinence, No Hematuria, No Retention Musculoskeletal: No: other, neck pain, shoulder pain, arm pain, back pain, hand pain, leg pain, foot pain Neurological: No: Weakness, Numbness, Incoordination, Change in speech, Confusion, Seizures, Other Objective Exam Vital Signs Date Time Temp Pulse Resp B/P (MAP) Pulse Ox O2 Delivery O2 Flow Rate FiO2 05/11/18 08:00 97.0 70 20 120/77 (91) 97 Room Air 05/11/18 04:10 98.4 68 18 123/79 (94) 98 Room Air 05/11/18 00:18 98.7 78 18 114/72 (86) 98 Room Air 05/10/18 20:46 97.7 69 18 126/68 (87) 99 Room Air 05/10/18 15:37 98.2 71 18 114/75 (88) 99 Room Air I & O 05/11/18 07:00 Intake Total 4234 ml Output Total 1750 ml Balance 2484 ml Capillary Refill : General Appearance: No Apparent Distress Respiratory: Lungs Clear Cardiovascular: Regular Rate, Rhythm Gastrointestinal: non tender, soft Skin: Warm/Dry Results Lab Laboratory Tests 05/11/18 05:30: White Blood Count 5.2, Red Blood Count 3.36L, Hemoglobin 10.5L, Hematocrit 30L, Mean Corpuscular Volume 88, Mean Corpuscular Hemoglobin 31, Mean Corpuscular Hemoglobin Concent 36, Red Cell Distribution Width 13.7, Platelet Count 215, Mean Platelet Volume 10.0, Neutrophils (%) (Auto) 66, Lymphocytes (%) (Auto) 21 , Monocytes (%) (Auto) 9, Eosinophils (%) (Auto) 3, Basophils (%) (Auto) 1, Neutrophils # (Auto) 3.5, Lymphocytes # (Auto) 1.1, Monocytes # (Auto) 0.5, Eosinophils # (Auto) 0.2, Basophils # (Auto) 0.0, Sodium Level 139, Potassium Level 3.7, Chloride Level 110H, Carbon Dioxide Level 19L, Anion Gap 10, Blood Urea Nitrogen 9, Creatinine 0.67, Estimat Glomerular Filtration Rate > 60, BUN/ Creatinine Ratio 13, Glucose Level 122H, Calcium Level 8.5, Corrected Calcium 9.1, Total Bilirubin 0.4, Aspartate Amino Transf (AST/SGOT) 23, Alanine Aminotransferase (ALT/SGPT) 36, Alkaline Phosphatase 277H, Total Protein 5.8L, Albumin 3.3 Assessment/Plan Assessment/Plan Assess & Plan/Chief Complaint Gentleman with a small abscess along the superior aspect of the spleen. Possibly due to seeding by bacteria from another source. Cardiac valve as a potential source of origin and therefore an echocardiogram would be valuable. I 've discussed this with Dr. Collado, one of our cardiologists, who concurs with the idea of echocardiogram Gentleman with a small splenic abscess. Transthoracic echocardiogram negative for vegetations on the valve. Good response to IV antibiotics. Possibly could be discharged in 24 hours. Final Diagnosis Splenic abscess Clinical Quality Measures DVT/VTE Risk/Contraindication: Risk Factor Score Per Nursin RFS Level Per Nursing on Admit: 1=Low/No VTE PPX ELOISE VÁZQUEZ MD May 11, 2018 1:52 pm
[2018-05-11 16:42] VITALS: BP 116/78
[2018-05-12] VITALS: BP 118/67
[2018-05-12] MEDS: NS IV 1000 ML 1,000 ML IV SCH ×3 (00:49→22:26)
[2018-05-12] MEDS: HYDROcodone/APAP 5 MG/325 MG (LORTAB) TAB PO PRN (03:49)
[2018-05-12 05:54] LABS: BASOPHILS # (AUTO) 0.1 10^3/uL (0.0-0.1); BASOPHILS % (AUTO) 1 % (0-10); EOSINOPHILS # (AUTO) 0.3 10^3/uL (0.0-0.3); EOSINOPHILS % (AUTO) 6 % (0-10); HEMATOCRIT 32 % (40-54); LYMPHOCYTES # (AUTO) 1.7 X 10^3 (1.0-4.0); LYMPHOCYTES % (AUTO) 33 % (12-44); MEAN CORPUSCULAR HEMOGLOBIN 31 PG (25-34); MEAN CORPUSCULAR HGB CONC 35 G/DL (32-36); MEAN CORPUSCULAR VOLUME 88 FL (80-99); MONOCYTES # (AUTO) 0.6 X 10^3 (0.0-1.0); MONOCYTES % (AUTO) 12 % (0-12); NEUTROPHILS # (AUTO) 2.5 X 10^3 (1.8-7.8); NEUTROPHILS % (AUTO) 48 % (42-75); PLATELET COUNT 291 10^3/uL (130-400); RED BLOOD COUNT 3.57 10^6/uL (4.35-5.85); RED CELL DISTRIBUTION WIDTH 14.1 % (10.0-14.5); WHITE BLOOD COUNT 5.2 10^3/uL (4.3-11.0)
[2018-05-12] MEDS: PANTOPRAZOLE 40 MG (PROTONIX) TAB PO SCH (06:01)
[2018-05-12 06:19] LABS: ALANINE AMINOTRANSFERASE 69 U/L (0-55); ALBUMIN 3.4 GM/DL (3.2-4.5); ALKALINE PHOSPHATASE 370 U/L (40-136); BILIRUBIN,TOTAL 0.6 MG/DL (0.1-1.0); BUN/CREATININE RATIO 12; CALCIUM 8.7 MG/DL (8.5-10.1); CARBON DIOXIDE 21 MMOL/L (21-32); CHLORIDE 110 MMOL/L (98-107); CREATININE SERUM 0.65 MG/DL (0.60-1.30); GFR ESTIMATED > 60; GLUCOSE 104 MG/DL (70-105); POTASSIUM 3.6 MMOL/L (3.6-5.0); SODIUM 139 MMOL/L (135-145)
[2018-05-12 06:21] LABS: SMEAR SCAN COMMENT YES
--- NOTE | 2018-05-12 07:58 | Progress Note (SOAP) ---
Subjective Time Seen by Provider: 07:55 Subjective/Events-last exam Patient feeling much better today. Patient needing. Patient has splenic. Liver Tests Are Elevated Now. Patient Needs an Abdominal Sonogram.Wants to Go Home. Patient Objective Exam Vital Signs Date Time Temp Pulse Resp B/P (MAP) Pulse Ox O2 Delivery O2 Flow Rate FiO2 05/12/18 00:00 98.6 63 18 118/67 (84) 97 Room Air 05/11/18 16:42 98.3 72 20 116/78 (91) 99 Room Air 05/11/18 08:00 97.0 70 20 120/77 (91) 97 Room Air I & O 05/12/18 07:00 Intake Total 2770 ml Balance 2770 ml Capillary Refill : General Appearance: No Apparent Distress, WD/WN HEENT: Normal ENT Inspection Neck: Full Range of Motion, Normal Inspection Respiratory: Chest Non Tender, No Accessory Muscle Use, No Respiratory Distress Cardiovascular: Regular Rate, Rhythm, No Murmur Gastrointestinal: non tender, soft Results Lab Laboratory Tests 05/12/18 05:16 Laboratory Tests 05/12/18 05:16: White Blood Count 5.2, Red Blood Count 3.57L, Hemoglobin 11.0L, Hematocrit 32L, Mean Corpuscular Volume 88, Mean Corpuscular Hemoglobin 31, Mean Corpuscular Hemoglobin Concent 35, Red Cell Distribution Width 14.1, Platelet Count 291, Mean Platelet Volume 10.0, Neutrophils (%) (Auto) 48, Lymphocytes (%) (Auto) 33 , Monocytes (%) (Auto) 12, Eosinophils (%) (Auto) 6, Basophils (%) (Auto) 1, Neutrophils # (Auto) 2.5, Lymphocytes # (Auto) 1.7, Monocytes # (Auto) 0.6, Eosinophils # (Auto) 0.3, Basophils # (Auto) 0.1, Sodium Level 139, Potassium Level 3.6, Chloride Level 110H, Carbon Dioxide Level 21, Anion Gap 8, Blood Urea Nitrogen 8, Creatinine 0.65, Estimat Glomerular Filtration Rate > 60, BUN/ Creatinine Ratio 12, Glucose Level 104, Calcium Level 8.7, Corrected Calcium 9.2 , Total Bilirubin 0.6, Aspartate Amino Transf (AST/SGOT) 64H, Alanine Aminotransferase (ALT/SGPT) 69H, Alkaline Phosphatase 370H, Total Protein 6.0L, Albumin 3.4, Smear Scan YES Assessment/Plan Assessment/Plan Assess & Plan/Chief Complaint Abdominal pain. Febrile. Abscess spleen.. . 05/11/18. Abdominal pain better. Not febrile. Splenic abscess small. Patient taking fluids. Plan to discharge tomorrow. . 05/12/18. New-onset of elevated liver tests. Abdominal pain better. Not febrile. Small splenic abscess. Patient wants to go home today. Patient will do blood tests each day at hospital. He states he will do this if he goes home Clinical Quality Measures Admission Status Admission Dx Abscess of spleen. Fever. Abdominal pain. DVT/VTE Risk/Contraindication: Risk Factor Score Per Nursin RFS Level Per Nursing on Admit: 1=Low/No VTE PPX NORA STOCK DO May 12, 2018 07:58
[2018-05-12 08:00] VITALS: BP 118/74
[2018-05-12] MEDS: NICOTINE 14 MG (NICODERM) PATCH TD SCH (08:46)
[2018-05-12] MEDS: PATCH REMOVAL TP SCH (08:46)
--- NOTE | 2018-05-12 09:38 | Progress Note-Cardiology ---
Cardiology SOAP Progress Note Subjective: Sitting up in bed. No c/o CP, dyspnea or palpitations. Reports abd pain has continued to improve. Objective: I&O/Vital Signs 05/12/18 05/12/18 08:00 08:00 Temp 98.3 Pulse 65 Resp 20 B/P (MAP) 118/74 (89) Pulse Ox 98 O2 Delivery Room Air Room Air 05/12/18 00:00 Intake Total 1270 ml Balance 1270 ml Weight (Pounds): 170 Weight (Ounces): 0.0 Weight (Calculated Kilograms): [id number] Constitutional: AAO x 3 Respiratory: No accessory muscle use, No respiratory distress; chest expansion is symmetric, chest is bilaterally symmetric, lungs clear to auscultation Cardiovascular: regular rate-rhythm; No JVD; S1 and S2 Gastrointestional: No tender; soft, round, audible bowel sounds Extremities: no lower extremity edema bilateral Neurologic/Psychiatric: grossly intact, power is 5/5 both on sides Skin: No rash, No ulcerations Results/Procedures: Labs Laboratory Tests 05/12/18 05:16: White Blood Count 5.2, Red Blood Count 3.57L, Hemoglobin 11.0L, Hematocrit 32L, Mean Corpuscular Volume 88, Mean Corpuscular Hemoglobin 31, Mean Corpuscular Hemoglobin Concent 35, Red Cell Distribution Width 14.1, Platelet Count 291, Mean Platelet Volume 10.0, Neutrophils (%) (Auto) 48, Lymphocytes (%) (Auto) 33 , Monocytes (%) (Auto) 12, Eosinophils (%) (Auto) 6, Basophils (%) (Auto) 1, Neutrophils # (Auto) 2.5, Lymphocytes # (Auto) 1.7, Monocytes # (Auto) 0.6, Eosinophils # (Auto) 0.3, Basophils # (Auto) 0.1, Sodium Level 139, Potassium Level 3.6, Chloride Level 110H, Carbon Dioxide Level 21, Anion Gap 8, Blood Urea Nitrogen 8, Creatinine 0.65, Estimat Glomerular Filtration Rate > 60, BUN/ Creatinine Ratio 12, Glucose Level 104, Calcium Level 8.7, Corrected Calcium 9.2 , Total Bilirubin 0.6, Aspartate Amino Transf (AST/SGOT) 64H, Alanine Aminotransferase (ALT/SGPT) 69H, Alkaline Phosphatase 370H, Total Protein 6.0L, Albumin 3.4, Smear Scan YES Laboratory Tests 05/11/18 05:30 05/12/18 05:16 A/P: Assessment: Abdominal pain - management per Med Svce Splenic abscess - Small 8.9 x 13.1 mm rounded area of low density has developed in the dome of the spleen. This could represent a small infected fluid collection - management per surgical services H/O IV drug use in the past (methamphetamines) - last usage approx a year ago Mild anemia of undetermined etiology - medical services managing Tobaccoism - cessation advised Echo of 05/11/18: Normal LVEF, no significant valvular heart disease or evidence of endocarditis on this trans-thoracic echo Plan: * Echo to eval for endocarditis - results pending * Advised to quit smoking and refrain from any street drug use * Follow labs Physician Assessment Physician Assessment Feels well. No shortness of breath Denies cp or palp or syncope or leg swelling Lungs: clear Cor: reg Ext: no c/c/e A&R * As documented in our note above that I updated * I discussed his echo results with him * Advised to refrain from street drug use * Monitor labs JESUS PENA SFDC TECHNICAL ARCHITECT May 12, 2018 09:38 YOBANI BRENNAN MD FACP [facility] May 12, 2018 17:13
--- NOTE | 2018-05-12 09:52 | Progress Note-Standard ---
Standard Progress Note Progress Notes/Assess & Plan Date Seen by Provider: May 12, 2018 Time Seen by Provider: 09:05 Progress/Assessment & Plan No abdominal pain. Liver enzymes slightly elevated, etiology unknown. Abdomen soft and nontender. Final Diagnosis Splenic abscess. Elevated liver enzymes. ELOISE VÁZQUEZ MD May 12, 2018 09:52
[2018-05-12] MEDS: cefTRIAXone 1 GM/NS 50 ML IVPB IV SCH ×2 (13:48)
[2018-05-12 16:00] VITALS: BP 120/74
[2018-05-12 23:52] VITALS: BP 132/72
[2018-05-13 06:05] LABS: BASOPHILS # (AUTO) 0.1 10^3/uL (0.0-0.1); BASOPHILS % (AUTO) 1 % (0-10); EOSINOPHILS # (AUTO) 0.3 10^3/uL (0.0-0.3); EOSINOPHILS % (AUTO) 4 % (0-10); HEMATOCRIT 32 % (40-54); HEMOGLOBIN 11.5 G/DL (13.3-17.7); LYMPHOCYTES # (AUTO) 1.8 X 10^3 (1.0-4.0); LYMPHOCYTES % (AUTO) 24 % (12-44); MEAN CORPUSCULAR HEMOGLOBIN 31 PG (25-34); MEAN CORPUSCULAR HGB CONC 36 G/DL (32-36); MEAN CORPUSCULAR VOLUME 88 FL (80-99); MEAN PLATELET VOLUME 9.9 FL (7.4-10.4); MONOCYTES # (AUTO) 0.8 X 10^3 (0.0-1.0); MONOCYTES % (AUTO) 11 % (0-12); NEUTROPHILS # (AUTO) 4.7 X 10^3 (1.8-7.8); NEUTROPHILS % (AUTO) 61 % (42-75); PLATELET COUNT 355 10^3/uL (130-400); RED BLOOD COUNT 3.66 10^6/uL (4.35-5.85); RED CELL DISTRIBUTION WIDTH 13.8 % (10.0-14.5); WHITE BLOOD COUNT 7.7 10^3/uL (4.3-11.0)
[2018-05-13] MEDS: PANTOPRAZOLE 40 MG (PROTONIX) TAB PO SCH (06:14)
[2018-05-13 06:23] LABS: ALANINE AMINOTRANSFERASE 108 U/L (0-55); ALBUMIN 3.6 GM/DL (3.2-4.5); ALKALINE PHOSPHATASE 439 U/L (40-136); BILIRUBIN,TOTAL 0.7 MG/DL (0.1-1.0); BUN/CREATININE RATIO 13; CALCIUM 8.9 MG/DL (8.5-10.1); CARBON DIOXIDE 18 MMOL/L (21-32); CHLORIDE 111 MMOL/L (98-107); CREATININE SERUM 0.67 MG/DL (0.60-1.30); GFR ESTIMATED > 60; GLUCOSE 102 MG/DL (70-105); POTASSIUM 3.7 MMOL/L (3.6-5.0); SODIUM 141 MMOL/L (135-145); TOTAL PROTEIN 6.3 GM/DL (6.4-8.2)
[2018-05-13 08:00] VITALS: BP 118/72
[2018-05-13] MEDS: NICOTINE 14 MG (NICODERM) PATCH TD SCH (09:00)
--- NOTE | 2018-05-13 11:02 | Progress Note-Hospitalist ---
Subjective HPI/CC On Admission Date Seen by Provider: May 13, 2018 Time Seen by Provider: 10:30 Objective Exam Vital Signs Vital Signs Date Time Temp Pulse Resp B/P (MAP) Pulse Ox O2 Delivery O2 Flow Rate FiO2 05/13/18 08:00 96.9 60 16 118/72 (87) 99 Room Air Capillary Refill : Less Than 3 Seconds Results/Procedures Lab Laboratory Tests 05/13/18 05:45 Patient resulted labs reviewed. Clinical Quality Measures DVT/VTE Risk/Contraindication: Risk Factor Score Per Nursin RFS Level Per Nursing on Admit: 1=Low/No VTE PPX LUCILA SOMMERS DO May 13, 2018 11:02
--- NOTE | 2018-05-13 12:26 | Progress Note (SOAP) ---
Subjective Date Seen by Provider: May 13, 2018 Time Seen by Provider: 11:45 Subjective/Events-last exam Patient seen with Dr. Patino. Patient reports doing well. Denies any fever/ chills or abdominal pain. No Nausea/vomiting. Tolerating diet and ambulating. Reports that when he first presented to the ER he did have RUQ pain but at this time this has subsided. Patient says that he would like to go home today. Objective Exam Vital Signs Date Time Temp Pulse Resp B/P (MAP) Pulse Ox O2 Delivery O2 Flow Rate FiO2 05/13/18 08:00 96.9 60 16 118/72 (87) 99 Room Air 05/12/18 23:52 98.1 72 18 132/72 (92) 97 Room Air 05/12/18 16:00 98.2 63 20 120/74 (89) 98 Room Air I & O 05/13/18 07:00 Intake Total 3690 ml Balance 3690 ml Capillary Refill : Less Than 3 Seconds General Appearance: No Apparent Distress, WD/WN Neck: Full Range of Motion, Normal Inspection, Non Tender, Supple Respiratory: Chest Non Tender, No Accessory Muscle Use, No Respiratory Distress Cardiovascular: Regular Rate, Rhythm, No Murmur Gastrointestinal: normal bowel sounds, non tender, soft Extremity: Normal Capillary Refill, Normal Inspection, Normal Range of Motion Neurologic/Psychiatric: Alert, Oriented x3 Skin: Normal Color, Warm/Dry Results Lab Laboratory Tests 05/13/18 05:45: White Blood Count 7.7, Red Blood Count 3.66L, Hemoglobin 11.5L, Hematocrit 32L, Mean Corpuscular Volume 88, Mean Corpuscular Hemoglobin 31, Mean Corpuscular Hemoglobin Concent 36, Red Cell Distribution Width 13.8, Platelet Count 355, Mean Platelet Volume 9.9, Neutrophils (%) (Auto) 61, Lymphocytes (%) (Auto) 24, Monocytes (%) (Auto) 11, Eosinophils (%) (Auto) 4, Basophils (%) (Auto) 1, Neutrophils # (Auto) 4.7, Lymphocytes # (Auto) 1.8, Monocytes # (Auto) 0.8, Eosinophils # (Auto) 0.3, Basophils # (Auto) 0.1, Sodium Level 141, Potassium Level 3.7, Chloride Level 111H, Carbon Dioxide Level 18L, Anion Gap 12, Blood Urea Nitrogen 9, Creatinine 0.67, Estimat Glomerular Filtration Rate > 60, BUN/ Creatinine Ratio 13, Glucose Level 102, Calcium Level 8.9, Corrected Calcium 9.2 , Total Bilirubin 0.7, Aspartate Amino Transf (AST/SGOT) 83H, Alanine Aminotransferase (ALT/SGPT) 108H, Alkaline Phosphatase 439H, Total Protein 6.3L , Albumin 3.6 Assessment/Plan Assessment/Plan Assess & Plan/Chief Complaint A 38 year old male with a splenic abscess and elevated liver enzymes. Liver enzymes elevated more today and will proceed with gallbladder US. VSS. Ok for DC home today after gallbladder US from surgery standpoint. Clinical Quality Measures DVT/VTE Risk/Contraindication: Risk Factor Score Per Nursin RFS Level Per Nursing on Admit: 1=Low/No VTE PPX WELLINGTON KNIGHT APRN May 13, 2018 12:26 pm
[2018-05-13] MEDS ORDERED: CEFD300C3 PO (12:37)
--- NOTE | 2018-05-13 12:38 | Discharge Inst-Surgical ---
D/C Lap Instructions-KIDO New, Converted, or Re-Newed RX: RX on Chart Follow Up Appt in 2 weeks Activity as tolerated Low fat Diet Avoid Alcohol, Caffeine, Spicy [place] and Acid foods. Drink 64 fluid oz or more of fluids per day. Symptoms to Report: Fever over 101 degree F, Nausea/Vomiting If any problems/questions: Contact your physician or go to Emergency Room ANI MACE MD May 13, 2018 12:38
[2018-05-13] MEDS: PATCH REMOVAL TP SCH (13:15)
[2018-05-13] MEDS: cefTRIAXone 1 GM/NS 50 ML IVPB IV SCH ×2 (13:21)
[2018-05-13 15:25] VITALS: BP 122/74
[2018-05-13 16:00] VITALS: BP 122/74
--- NOTE | 2018-05-13 17:04 | Discharge Summary-Hospitalist ---
Diagnosis/Chief Complaint Date of Admission May 09, 2018 at 11:53 Date of Discharge Discharge Date: May 13, 2018 Discharge Diagnosis (1) Splenic abscess Status: Acute (2) Methamphetamine abuse Status: Chronic (3) IV drug abuse Status: Chronic (4) Smoker Status: Chronic (5) Elevated liver enzymes Status: Acute Discharge Summary Discharge Physical Exam Allergies: Coded Allergies: No Known Drug Allergies (Unverified , 03/15/11) Vitals & I&Os Vital Signs Date Time Temp Pulse Resp B/P (MAP) Pulse Ox O2 Delivery O2 Flow Rate FiO2 05/13/18 08:00 96.9 60 16 118/72 (87) 99 Room Air General Appearance: WD/WN, Anxious, Chronically ill, Thin Respiratory: Lungs Clear Cardiovascular: Regular Rate, Rhythm, No Edema Gastrointestinal: Non Tender, Soft Neurologic/Psychiatric: Alert, Oriented x3, No Motor/Sensory Deficits, Normal Mood/Affect Hospital Course Hospital course: patient had a lengthy hospital course. Elevated liver enzymes were monitored and patient was placed on abx empirically for splenic abscess. Patient was very anxious during the entire hospital stay and on Tuesday he was on the verge of leaving AMA so Dr Patino was consulted and considering the stability of the conditions he as being treated for we agreed for DC with close follow up because we felt it would be better to DC per protocol to help encourage compliance and close f/u rather than leave AMA and not receive DC meds and f/u appt. Patient was counseled to stop using drugs and maintain abx PO at DC. Labs (last 24 hrs) Laboratory Tests 05/13/18 05:45: White Blood Count 7.7, Red Blood Count 3.66L, Hemoglobin 11.5L, Hematocrit 32L, Mean Corpuscular Volume 88, Mean Corpuscular Hemoglobin 31, Mean Corpuscular Hemoglobin Concent 36, Red Cell Distribution Width 13.8, Platelet Count 355, Mean Platelet Volume 9.9, Neutrophils (%) (Auto) 61, Lymphocytes (%) (Auto) 24, Monocytes (%) (Auto) 11, Eosinophils (%) (Auto) 4, Basophils (%) (Auto) 1, Neutrophils # (Auto) 4.7, Lymphocytes # (Auto) 1.8, Monocytes # (Auto) 0.8, Eosinophils # (Auto) 0.3, Basophils # (Auto) 0.1, Sodium Level 141, Potassium Level 3.7, Chloride Level 111H, Carbon Dioxide Level 18L, Anion Gap 12, Blood Urea Nitrogen 9, Creatinine 0.67, Estimat Glomerular Filtration Rate > 60, BUN/ Creatinine Ratio 13, Glucose Level 102, Calcium Level 8.9, Corrected Calcium 9.2 , Total Bilirubin 0.7, Aspartate Amino Transf (AST/SGOT) 83H, Alanine Aminotransferase (ALT/SGPT) 108H, Alkaline Phosphatase 439H, Total Protein 6.3L , Albumin 3.6 Patient resulted labs reviewed. Discussion & Recommendations Discharge Planning: <30 minutes discharge planning Discharge Home Medications: Active Scripts Active Cefdinir 300 Mg Capsule 300 Mg PO BID Instructions to patient/family Please see electronic discharge instructions given to patient. Clinical Quality Measures DVT/VTE Risk/Contraindication: Risk Factor Score Per Nursin RFS Level Per Nursing on Admit: 1=Low/No VTE PPX LUCILA SOMMERS DO May 13, 2018 17:04
== END 2018-05-13 16:00 | disposition home or self-care (01) | DRG 816 ==
LOC: 4TH 11:53
PROVIDERS: ADMIT Family Medicine; ATTEND Family Medicine
DX: D73.3 Abscess of spleen (principal); D64.9 Anemia, unspecified; F41.9 Anxiety disorder, unspecified; R74.8 Abnormal levels of other serum enzymes; F15.10 Other stimulant abuse, uncomplicated; F19.10 Other psychoactive substance abuse, uncomplicated; F17.210 Nicotine dependence, cigarettes, uncomplicated
CPT/HCPCS: 36415; 74018; 74177; 80053; 82150; 83690; 85025; 93306